=== PATIENT | female | born 1955 | race Caucasian/White ===

== ENCOUNTER 2017-05-20 10:21 | Emergency (ER) | payer BC, OTHER ==
[~2017-05-20] VITALS: Ht 160 cm; Wt 62.1 kg
--- NOTE | 2017-05-20 10:25 | NUR ---
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 A/OX 4. BREATHING EVEN AND UNLABORED. SKIN WARM AND DRY. NO SOB. VITALS STABLE. SAFETY AND COMFORT MEASURES IN PLACE. AWAITING MD ORDERS
[2017-05-20] MEDS ORDERED: IV NS 0.9% 500 ML BAG IV ONE (10:30)
[2017-05-20] MEDS ORDERED: MORPHINE SULFATE INJ 2 MG/ML DISP.SYRIN IV ONE (10:30)
[2017-05-20] MEDS ORDERED: ONDANSETRON HCL/PF 4 MG/2 ML VIAL IVP ONE (10:30)
[2017-05-20] MEDS ORDERED: ONDANSETRON HCL/PF 4 MG/2 ML VIAL ONE (10:43)
[2017-05-20 10:44] LABS: BASOPHILS # (AUTO) 0.1 /CMM (0.0-0.2); BASOPHILS % (AUTO) 0.6 % (0.0-2.0); EOSINOPHILS # (AUTO) 0.3 /CMM (0.0-0.7); EOSINOPHILS % (AUTO) 2.7 % (0.0-6.0); HEMATOCRIT 38 % (33-45); HEMOGLOBIN 12.9 g/dL (11.5-14.8); LYMPHOCYTES # (AUTO) 1.5 /CMM (0.8-4.8); LYMPHOCYTES % (AUTO) 15.7 % (20.0-44.0); MEAN CORPUSCULAR HEMOGLOBIN 32 PG (26.0-33.0); MEAN CORPUSCULAR HGB CONC 34 g/dl (31.0-36.0); MEAN CORPUSCULAR VOLUME 93 fL (82-100); MONOCYTES # (AUTO) 0.6 /CMM (0.1-1.30); MONOCYTES % (AUTO) 6.5 % (2.0-12.0); NEUTROPHILS # (AUTO) 6.9 /CMM (1.8-8.9); NEUTROPHILS % (AUTO) 74.5 % (43.0-81.0); PLATELET COUNT (AUTO) 218 /CMM (150-450); RDW COEFFICIENT OF VARIATION 12.9 (11.5-15.0); RED BLOOD CELL COUNT(AUTO) 4.07 MIL/uL (4.0-5.2); WHITE BLOOD COUNT (AUTO) 9.4 K/uL (4.3-11.0)
[2017-05-20] MEDS ORDERED: MORPHINE SULFATE INJ 10 MG/ML DISP.SYRIN ONE (10:44)
[2017-05-20 10:55] LABS: CALCIUM, SERUM 9.3 mg/dL (8.5-10.1); CARBON DIOXIDE 30 mmol/L (21-32); CHLORIDE 104 mmol/L (98-107); GLUCOSE 110 mg/dL (74-106); POTASSIUM 4.2 mmol/L (3.5-5.1); SODIUM SERUM 140 mmol/L (136-145); UREA NITROGEN, BLOOD 22 mg/dL (7-18)
[2017-05-20 10:58] LABS: INR 0.98 (0.87-1.13); PROTHROMBIN TIME 10.2 SECS (9.5-12.7)
[2017-05-20] MEDS ORDERED: LAMO100T2 PO (11:02)
[2017-05-20] MEDS ORDERED: PROG100C3 PO (11:02)
[2017-05-20] MEDS ORDERED: LEVO137T24 PO (11:02)
[2017-05-20] MEDS ORDERED: PRAV20TA4 PO (11:02)
[2017-05-20] MEDS ORDERED: ESTR0.3T3 PO (11:02)
[2017-05-20] MEDS ORDERED: ASPI-605 PO (11:02)
[2017-05-20] MEDS ORDERED: ESCI10TA PO (11:02)
--- NOTE | 2017-05-20 11:03 | NUR ---
SURGICAL DEVICE SALES REPRESENTATIVE: DR [phone]
[2017-05-20 11:04] LABS: TROPONIN I < 0.017 ng/mL (0.00-0.056)
[2017-05-20] MEDS ORDERED: PRAV40TA3 PO (11:11)
[2017-05-20] MEDS ORDERED: ESTR0.452 PO (11:11)
[2017-05-20] MEDS ORDERED: LEVO175T7 PO (11:11)
[2017-05-20] MEDS ORDERED: LOSA25TA13 PO (11:11)
[2017-05-20] MEDS ORDERED: IV NS 0.9% 250 ML IV ONE (11:47)
[2017-05-20] MEDS ORDERED: IOHEXOL-350 100 ML VIAL IV ONE (11:47)
[2017-05-20] MEDS ORDERED: CT SWABBABLE VALVE TRANS SET 1 EA INFUS.SET MC ONE (11:47)
--- NOTE | 2017-05-20 11:50 | NUR ---
PATIENT TAKEN TO CT VIA STRETCHER.
--- NOTE | 2017-05-20 12:17 | NUR ---
PATIENT RETURNED FROM CT IN STABLE CONDITION. IV ON LAC NO LONGER PATENT. IV REMOVED AND SITE SECURED WITH GAUZE AND TAPE. NEW IV ON RAC, 18 G.
[2017-05-20] MEDS ORDERED: MAG HYDROX/AL HYDROX/SIMETH 30 ML UDC ONE (13:28)
[2017-05-20] MEDS ORDERED: FAMOTIDINE/PF INJ 20 MG/2 ML VIAL IV ONE ×2 (13:28→13:30)
[2017-05-20] MEDS ORDERED: MAG HYDROX/AL HYDROX/SIMETH 30 ML UDC PO ONE (13:30)
--- NOTE | 2017-05-20 13:50 | NUR ---
ANODIC OPERATOR AT BEDSIDE FOR BLOOD DRAW.
[2017-05-20 15:10] VITALS: BP 137/67
--- NOTE | 2017-05-20 15:11 | NUR ---
IV removed. Catheter intact and site benign. Pressure and 4x4 applied to site. No bleeding noted. Patient discharged to home in stable condition. Written and verbal after care instructions given. Patient verbalizes understanding of instruction.
== END 2017-05-20 15:11 | disposition home or self-care (01) ==
LOC: ER 10:23 → TELE 11:26 → UNDOADMIN 11:26 → ER 15:11
DX: R07.9 Chest pain, unspecified (principal); F32.9 Major depressive disorder, single episode, unspecified; Z88.1 Allergy status to other antibiotic agents; Z79.82 Long term (current) use of aspirin
CPT/HCPCS: 36415; 71010; 71275; 80048; 84484 ×2; 85025; 85730; 93005; 96374 ×2; 96375; 99285; A4606; J2270; J2405; J3490; J7040; J7050; Q9967; Z7610